=== PATIENT | male | born 1965 | race Caucasian/White ===

== ENCOUNTER 2018-03-16 19:09 | Emergency (ER) | payer SELFPAY ==
[~2018-03-16] VITALS: Ht 172.7 cm; Wt 117.9 kg
[2018-03-16 19:32] VITALS: Ht 172.7 cm; Wt 117.9 kg
[2018-03-16 20:30] VITALS: BP 162/102
== END 2018-03-16 20:30 | disposition home or self-care (01) ==
LOC: ED 19:09
DX: M10.9 Gout, unspecified (principal); I10 Essential (primary) hypertension; Z90.89 Acquired absence of other organs; Z98.890 Other specified postprocedural states

== ENCOUNTER 2019-04-04 23:21 | Emergency (ER) | payer SELFPAY ==
[~2019-04-04] VITALS: Ht 172.7 cm; Wt 158.8 kg
[2019-04-04 23:39] VITALS: Ht 172.7 cm; Wt 158.8 kg
[2019-04-05 02:53] LABS: BASOPHIL % 0.2 % (0-2); PLATELET COUNT 234 x10^3mcL (130-400); RED CELL DISTRIBUTION WIDTH 13.4 % (11.5-14.5)
[2019-04-05 02:57] LABS: CALCIUM 8.7 mg/dL (8.5-10.1); CARBON DIOXIDE 28.3 mmol/L (21-32); CHLORIDE SERUM 104 mmol/L (98-107); GFR1 > 60 mL/min; GLUCOSE SERUM 136 mg/dL (74-106); POTASSIUM SERUM 4.1 mmol/L (3.5-5.1); SODIUM SERUM 139 mmol/L (136-145)
[2019-04-05 02:59] LABS: C REACTIVE PROTEIN 1.4 mg/dL (<=0.9); MAGNESIUM 1.9 mg/dL (1.8-2.4)
[2019-04-05 04:08] LABS: ERYTHROCYTE SED RATE 36 mm/hr (0-20)
[2019-04-05 07:30] VITALS: BP 195/98
== END 2019-04-05 07:30 | disposition home or self-care (01) ==
LOC: ED 23:21
PROVIDERS: Emergency Medicine
DX: M79.605 Pain in left leg (principal); I10 Essential (primary) hypertension; Z98.890 Other specified postprocedural states
CPT/HCPCS: 36415; Q0092